=== PATIENT | male | born 1955 | race Caucasian/White ===

== ENCOUNTER 2023-10-13 21:45 | Inpatient (IN) | payer MEDICARE ==
[2023-10-13 22:52] LABS: Troponin I 0.678 ng/mL (< 0.028)
[2023-10-13] MEDS ORDERED: Ondansetron PF 4 MG/2 ML Vial IVP PRN (23:11)
[2023-10-13] MEDS ORDERED: HYDROcodone/Acetaminophen 5/325 mg Tablet PO PRN (23:11)
[2023-10-13] MEDS ORDERED: Acetaminophen 325 MG TAB PO PRN (23:11)
[2023-10-13] MEDS ORDERED: Ondansetron ODT 4 MG TAB PO PRN (23:11)
[2023-10-13] MEDS ORDERED: HumaLOG 300 UNITS/3 ML VIAL SC PRN (23:12)
[2023-10-13] MEDS ORDERED: Dextrose 5% in Water 1,000 ML IV PRN (23:12)
[2023-10-13] MEDS ORDERED: Glucagon 1 MG/ML KIT IM PRN (23:12)
[2023-10-13] MEDS ORDERED: Dextrose 50% Abboject 50 ML SYRINGE SLOW IVP PRN (23:12)
[2023-10-14 00:25] VITALS: BMI 48.2
[2023-10-14 04:35] LABS: %Eosinophils 1.4 % (0.0-10.0); %Lymphocytes 28.3 % (21.0-51.0); %Monocytes 7.2 % (0.0-10.0); %Neutrophils 61.2 % (42.0-75.0); Hematocrit 41.1 % (42.0-52.0); Hemoglobin 13.2 g/dL (14.0-18.0); Mean Corpuscular HGB CONC 32.1 g/dL (32.0-36.0); Mean Corpuscular Hemoglobin 26.2 pg (27.0-31.0); Mean Corpuscular Volume 81.7 fL (78.0-98.0); Mean Platelet Volume 9.9 fL (7.4-10.4); Platelet Count 227 10x3/uL (130-400); RBC Distribution Width 15.6 % (11.5-14.5); Red Blood Cell (RBC) Count 5.03 mill/uL (4.70-6.10)
[2023-10-14 04:47] LABS: ALT (SGPT) 47 U/L (8-55); AST (SGOT) 25 U/L (5-34); Albumin 2.9 g/dL (3.4-4.8); Alkaline Phosphatase 84 U/L (40-110); Anion Gap 18 mmol/L (10-20); BUN (Urea Nitrogen) 28 mg/dL (8.4-25.7); Calc. Creatinine Clearance 85 mL/min (70-130); Calcium 8.6 mg/dL (7.8-10.44); Carbon Dioxide 17 mmol/L (23-31); Chloride 108 mmol/L (98-107); Estimated GFR 41; Globulin 3.9 g/dL (2.4-3.5); Glucose 115 mg/dL (80-115); Potassium 3.7 mmol/L (3.5-5.1); Protein, Total 6.8 g/dL (5.8-8.1); Sodium 139 mmol/L (136-145)
[2023-10-14 04:56] LABS: Critical Call Chem Troponin I RESULT DECREASING; Troponin I 0.483 ng/mL (< 0.028)
[2023-10-14] MEDS: Famotidine 20 MG TAB PO SCH (08:21)
[2023-10-14] MEDS: Aspirin 81 mg Enteric Coated Tablet PO SCH (08:21)
[2023-10-14] MEDS: Lactated Ringer's 1,000 ML IV SCH (08:21)
[2023-10-14] MEDS: Enoxaparin 80 MG (0.8 mL) SYRINGE SC SCH (08:21)
[2023-10-14] MEDS ORDERED: Lorazepam 1 MG TAB PO PRN (09:08)
[2023-10-14 09:42] LABS: Critical Call Chem Troponin I LOWER@0940; Troponin I 0.352 ng/mL (< 0.028)
[2023-10-14] MEDS: HumaLOG 300 UNITS/3 ML VIAL SC PRN (11:34)
[2023-10-14] MEDS: Apixaban 5 MG TAB PO SCH (20:53)
[2023-10-14] MEDS: Metoprolol Tartrate 50 MG TAB PO SCH (20:53)
[2023-10-14] MEDS: Atorvastatin Calcium 40 MG TAB PO SCH (20:53)
[2023-10-15 06:26] LABS: #Basophils 0.07 10x3/uL (0.0-0.2); %Basophils 0.8 % (0.0-1.0); %Eosinophils 3.6 % (0.0-10.0); %Lymphocytes 26.9 % (21.0-51.0); %Monocytes 7.6 % (0.0-10.0); %Neutrophils 60.3 % (42.0-75.0); Hematocrit 42.4 % (42.0-52.0); Hemoglobin 13.8 g/dL (14.0-18.0); Mean Corpuscular HGB CONC 32.5 g/dL (32.0-36.0); Mean Corpuscular Hemoglobin 27.2 pg (27.0-31.0); Mean Corpuscular Volume 83.5 fL (78.0-98.0); Mean Platelet Volume 9.3 fL (7.4-10.4); Platelet Count 231 10x3/uL (130-400); RBC Distribution Width 15.5 % (11.5-14.5); Red Blood Cell (RBC) Count 5.08 mill/uL (4.70-6.10)
[2023-10-15 06:39] LABS: Anion Gap 13 mmol/L (10-20); BUN (Urea Nitrogen) 27 mg/dL (8.4-25.7); Calc. Creatinine Clearance 86 mL/min (70-130); Calcium 8.5 mg/dL (7.8-10.44); Carbon Dioxide 20 mmol/L (23-31); Chloride 108 mmol/L (98-107); Estimated GFR 42; Glucose 119 mg/dL (80-115); Sodium 137 mmol/L (136-145)
[2023-10-15 11:42] LABS: INR-International Normal Ratio 1.3; Prothrombin Time 16.1 sec (12.0-14.7)
[2023-10-15 11:43] LABS: PTT 39.8 sec (22.9-36.1)
[2023-10-15] MEDS: Famotidine 20 MG TAB PO SCH (20:18)
[2023-10-16 07:55] VITALS: TEMP 96.7
[2023-10-16 10:46] LABS: #Basophils 0.07 10x3/uL (0.0-0.2); %Basophils 0.8 % (0.0-1.0); %Eosinophils 4.1 % (0.0-10.0); %Lymphocytes 15.7 % (21.0-51.0); %Monocytes 6.1 % (0.0-10.0); %Neutrophils 72.1 % (42.0-75.0); Hematocrit 43.1 % (42.0-52.0); Mean Corpuscular HGB CONC 32.5 g/dL (32.0-36.0); Mean Corpuscular Hemoglobin 26.7 pg (27.0-31.0); Mean Corpuscular Volume 82.3 fL (78.0-98.0); Mean Platelet Volume 9.9 fL (7.4-10.4); Platelet Count 262 10x3/uL (130-400); RBC Distribution Width 15.1 % (11.5-14.5); Red Blood Cell (RBC) Count 5.24 mill/uL (4.70-6.10)
[2023-10-16 11:10] LABS: Anion Gap 15 mmol/L (10-20); BUN (Urea Nitrogen) 23 mg/dL (8.4-25.7); Calc. Creatinine Clearance 93 mL/min (70-130); Calcium 8.8 mg/dL (7.8-10.44); Carbon Dioxide 22 mmol/L (23-31); Chloride 103 mmol/L (98-107); Estimated GFR 46; Glucose 188 mg/dL (80-115); Potassium 4.3 mmol/L (3.5-5.1); Sodium 136 mmol/L (136-145)
[2023-10-16 11:52] VITALS: BP 168/98
[2023-10-16 12:40] LABS: Cardiolipin IgA Ab 5.7 APL-U/mL (<14 Negative); Cardiolipin IgG Ab 1.5 GPL-U/mL (<10 Negative); Cardiolipin IgM Ab Less than 0.9 MPL-U/mL (<10 Negative); EliA APS New Method **** NEW METHOD ****; beta-2-Glycoprotein I IgA Ab 4.2 U/mL (<7 Negative); beta-2-Glycoprotein I IgG Ab 1.6 U/mL (<7 Negative); beta-2-Glycoprotein I IgM Abs Less than 2.4 U/mL (<7 Negative)
[2023-10-21] MEDS ORDERED: Apixaban 5 MG TAB PO SCH (21:00)
== END 2023-10-16 16:00 | disposition home or self-care (01) | DRG 175 ==
LOC: ERS 21:45 → IMCU/EMU 22:54
PROVIDERS: ADMIT Internal Medicine; ATTEND Internal Medicine
DX: I26.99 Other pulmonary embolism without acute cor pulmonale (principal); I21.4 Non-ST elevation (NSTEMI) myocardial infarction; J96.01 Acute respiratory failure with hypoxia; Z68.42 Body mass index [BMI] 45.0-49.9, adult; I82.432 Acute embolism and thrombosis of left popliteal vein; E11.9 Type 2 diabetes mellitus without complications; E78.5 Hyperlipidemia, unspecified; E66.01 Morbid (severe) obesity due to excess calories; I27.20 Pulmonary hypertension, unspecified; I11.9 Hypertensive heart disease without heart failure; F41.9 Anxiety disorder, unspecified
CPT/HCPCS: 36415; 36416; 80048; 80053; 81240; 81241; 84484; 85025; 85598; 85610; 85613; 85730; 86146; 86147; 93005; 93306; 93970; J1650; J1815

== ENCOUNTER 2024-03-03 13:49 | Outpatient (CLI) | payer MEDICARE | END 2024-03-03 13:50 | disposition home or self-care (01) | LOC: ULT 13:49 | PROVIDERS: ATTEND Internal Medicine | DX: I82.432 Acute embolism and thrombosis of left popliteal vein (principal) | CPT/HCPCS: 93970 ==